=== PATIENT | female | born 1985 | race Hispanic/Latino ===

== ENCOUNTER 2019-10-18 15:02 | Emergency (ER) | payer OTHER ==
[~2019-10-18] VITALS: Ht 165.1 cm; Wt 106.1 kg
--- OUTSIDE RECORDS SUMMARY | 2019-10-18 15:04 | XMS REPORT ---
Author Author [facility] Address Unknown Phone Unavailable Care Team Providers Care Systems Navigator Name Role Phone Unavailable Unavailable Problems This patient has no known problems. Allergies, Adverse Reactions, Alerts This patient has no known allergies or adverse reactions. Medications This patient has no known medications. Encounters Start Date/Time End Date/Time Encounter Type Admission Type Attending [facility] Facility Care Department Encounter ID 2019-06-19 07:12:00 2019-06-19 07:12:00 Outpatient [id number]
--- OUTSIDE RECORDS SUMMARY | 2019-10-18 15:04 | XMS REPORT | Summary of Care ---
Author Author KATHARINE BATISTA M.D. Organization Unknown Address Unknown Phone Unavailable Care Team Providers Care Social Sciences Instructor Name Role Phone KATHARINE BATISTA M.D. Unavailable Unavailable Unavailable Unavailable Functional Status Name Dates Details Functional status health issues are not documented Status: Name Dates Details Cognitive status health issues are not documented Status: Problems Name Dates Details High blood pressure (401.9, I10) Status: Active BPPV (benign paroxysmal positional vertigo) (386.11, H81.10) Status: Active Medications Name Dates Details Metoprolol Tartrate TABS Active FLUoxetine HCl - 20 MG Oral Tablet * Refills: 0 Active Meclizine HCl - 12.5 MG Oral Tablet * Refills: 0 Active Allergies and Adverse Reactions Name Dates Details No Known Allergies (Allergy) Status: Active Procedures Procedure Dates Details History of appendectomy Completed Immunization Name Dates Details Immunizations not documented Family History Name Dates Details Family history of cardiac disorder (V17.49, Z82.49) Comments: Other Status: Active Social History Name Dates Details - Status: Name Dates Details Never smoker Vital Signs Date Test Result Details [id number] BP Systolic 118 mm[Hg] Status: BP Diastolic 80 mm[Hg] Status: Height 66 in Status: Weight 236.375 lb Status: Body Mass Index Calculated 38.15 kg/m2 Status: Body Surface Area Calculated 2.15 m2 Status: Heart Rate 89 /min Status: Results Date Description Value Details Results not documented Plan of Care Name Dates Details Planned Observations Planned Goals not documented Interventions Provided Plan* 32 yo F with likely BPPV, normal hearing * - Morgan-Daroff exercises TID when having symptoms * - avoid meclizine unless severe symptoms * - reviewed audio * - RTC PRN Instructions Name Dates Details Instructions not documented Encounters Appointment; [facility] Encounter Diagnosis: Problem not documented On: 19-Oct-2017 9:00 Appointment; KATHARINE BATISTA M.D. Encounter Diagnosis: Problem not documented On: 19-Oct-2017 9:45
[2019-10-18] MEDS ORDERED: SODIUM CHLORIDE 0.9% 1000ML 1,000 ML IV STA (16:17)
[2019-10-18] MEDS ORDERED: KETOROLAC TROMETHAMINE 30 MG/ML VIAL IV ONE (16:30)
[2019-10-18] MEDS ORDERED: FAMOTIDINE 20 MG/2 ML VIAL IV ONE (16:30)
[2019-10-18] MEDS ORDERED: DIPHENHYDRAMINE HCL INJ 50 MG/ML VIAL IV ONE (16:30)
[2019-10-18] MEDS ORDERED: PROMETHAZINE 25MG/ NS 50ML (IV) IV ONE (16:30)
[2019-10-18] MEDS ORDERED: DEXAMETHASONE SOD PHOS 10 MG/1 ML VIAL IV ONE (16:30)
[2019-10-18] MEDS ORDERED: SODIUM CHLORIDE 0.9% 50ML 50 ML ONE (17:06)
[2019-10-18] MEDS ORDERED: SODIUM CHLORIDE 0.9% 1000ML 1,000 ML ONE (17:06)
[2019-10-18] MEDS ORDERED: PROMETHAZINE HCL (IM) 25 MG/ML VIAL ONE (17:06)
[2019-10-18] MEDS ORDERED: METOPROLOL TART25 MG PO (17:27)
--- NOTE | 2019-10-18 19:08 | NUR ---
Pt denies pain but has dizziness
--- NOTE | 2019-10-18 19:21 | Diagnostic Imaging Report ---
EXAM: Carotid Duplex Utrasound INDICATION: Neck pain, dizziness COMPARISON: None TECHNIQUE: Vasques scale, color Doppler and spectral waveform analysis of the bilateral common carotid, internal carotid, external carotid and vertebral arteries were performed. FINDINGS: Plaque Right: None Left: None Intimal thickening Right: None Left: None Internal Carotid Artery Peak Systolic Velocity Right: 64 cm/sec Left: 64 cm/sec Internal Carotid Artery to Common Carotid Ratio Right: 0.7 Left: 0.7 External Carotid Artery Peak Systolic Velocity Right: 63 cm/sec Left: 66 cm/sec Vertebral Arteries Direction: Normal antegrade flow Waveforms: Normal IMPRESSION: 1. Carotid artery plaques as described above. 2. Findings consistent with <50% narrowing internal carotid artery stenosis. 3. Antegrade vertebral arterial flow bilaterally. Signed by: Dr. Con Olguin M.D. on 10/18/2019 7:18 PM
== END 2019-10-18 19:33 | disposition home or self-care (01) ==
LOC: FSED 15:02
DX: H81.11 Benign paroxysmal vertigo, right ear (principal); R51 Headache
CPT/HCPCS: 80053; 81003; 85025; 93970; 96374; 96375; 99283; J1100; J1200; J1885; J2550; J7030